=== PATIENT | female | born 1940 | race Caucasian/White ===

== ENCOUNTER 2021-08-18 19:31 | Emergency (ER) | payer MEDICARE, OTHER ==
[2021-08-18] MEDS ORDERED: INFUSION IV STA (19:58)
[2021-08-18] MEDS ORDERED: ALTEPLASE IV STA (19:58)
[2021-08-18] MEDS ORDERED: Sodium Chloride 0.9% 10 ML Syringe FLUSH ONE (19:59)
[2021-08-18] MEDS ORDERED: Iopamidol 755 Mg/ML 100 ML Bottle IVPUSH ONE (19:59)
[2021-08-18] MEDS ORDERED: Sodium Chloride 0.9% 100 ML IV SCH (20:00)
[2021-08-18 21:09] VITALS: BP 157/60; PULSE 109
[2021-08-18] MEDS ORDERED: cefTRIAXone 1 GM in Sodium Chloride 0.9% 100 ML IV ONE (21:28)
[2021-08-18] MEDS ORDERED: Azithromycin 500 MG in Sodium Chloride 0.9% 250 ML IV ONE (21:28)
== END 2021-08-18 22:00 ==
LOC: JD.ED 19:31
DX: I63.9 Cerebral infarction, unspecified (principal); I67.82 Cerebral ischemia; J44.9 Chronic obstructive pulmonary disease, unspecified; Z79.82 Long term (current) use of aspirin; Z79.899 Other long term (current) drug therapy
CPT/HCPCS: 36415; 37195; 70450; 70496; 70498; 71045; 80053; 82947; 83735; 85025; 85610; 93005; 96365; 96375; 99285; J0456; J0696; J2997; J3490; J7050